=== PATIENT | female | born 1975 | race Caucasian/White ===

== ENCOUNTER 2017-10-05 17:14 | Emergency (ER) | payer MEDICAID, OTHER ==
[~2017-10-05] VITALS: Ht 175.3 cm; Wt 53.9 kg
[~2017-10-05 17:14] MED LIST: CLIN-80 PO; GUAI120015 PO; METH500T PO; PSEU-259 PO
[2017-10-05 17:17] VITALS: BP 109/70
[2017-10-05] MEDS ORDERED: DOXY100C2 PO (18:27)
== END 2017-10-05 18:42 | disposition home or self-care (01) ==
LOC: ER 17:14
DX: L03.317 Cellulitis of buttock (principal); L03.032 Cellulitis of left toe; E03.9 Hypothyroidism, unspecified; G89.29 Other chronic pain; F11.10 Opioid abuse, uncomplicated; Z98.890 Other specified postprocedural states; Z90.89 Acquired absence of other organs; Z88.0 Allergy status to penicillin
CPT/HCPCS: 99283

== ENCOUNTER 2018-04-15 19:55 | Emergency (ER) | payer MEDICAID ==
[~2018-04-15] VITALS: Ht 175.3 cm; Wt 61.9 kg
[~2018-04-15 19:55] MED LIST changes: -CLIN-80 PO; +CLIN300C85 PO
[2018-04-15] MEDS ORDERED: mag hydrox/Alum hydrox/simeth 30ml oral suspension PO ONE (21:15)
[2018-04-15] MEDS ORDERED: LIDOcaine Viscous 15ml cup PO ONE (21:15)
[2018-04-15] MEDS ORDERED: famotidine/PF 10 mg/ml inj IV ONE (21:15)
[2018-04-15] MEDS ORDERED: sucralfate 1 gm tablet PO ONE (21:15)
[2018-04-15 21:18] LABS: BASOPHILS % (AUTO) 0.5 % (0-1); EOSINOPHILS # (AUTO) 0.2 X10'3 (0-0.9); EOSINOPHILS % (AUTO) 2.2 % (0-6); HEMOGLOBIN 12.6 g/dl (12.0-16.0); LYMPHOCYTES # (AUTO) 3.4 X10'3 (1.1-4.8); LYMPHOCYTES % (AUTO) 38.8 % (21-51); MEAN CORPUSCULAR VOLUME 88.1 FL (78-98); MEAN PLATELET VOLUME 7.4 FL (7.4-10.4); MONOCYTES # (AUTO) 0.6 X10'3 (0-0.9); MONOCYTES % (AUTO) 6.8 % (2-12); NEUTROPHILS # (AUTO) 4.6 X10'3 (1.8-7.7); NEUTROPHILS % (AUTO) 51.7 % (42-75); PLATELET COUNT 344 X10'3 (140-440); RED CELL DISTRIBUTION WIDTH 14.4 % (11.5-14.5); WHITE BLOOD COUNT 8.9 X10'3 (4.5-11.0)
[2018-04-15 21:30] LABS: PARTIAL THROMBOPLASTIN TIME 29 SECONDS (22-32); PROTHROMBIN TIME 10.7 SECONDS (9.0-12.0)
[2018-04-15 21:33] LABS: ALANINE AMINOTRANSFERASE 26 U/L (12-78); ALBUMIN 3.6 G/DL (3.4-5.0); ALBUMIN/GLOBULIN RATIO 0.8 (1.1-1.5); ALKALINE PHOSPHATASE 108 IU/L (46-116); ANION GAP 9 (8-16); ASPARTATE AMINO TRANSFERASE 24 U/L (10-37); BILIRUBIN,TOTAL 0.6 MG/DL (0.1-1.0); BLOOD UREA NITROGEN 18 MG/DL (7-18); BUN/CREATININE RATIO 20.2 (6.6-38.0); CALCIUM 8.7 MG/DL (8.5-10.1); CHLORIDE 105 MMOL/L (99-107); CREATININE 0.89 MG/DL (0.40-0.90); POTASSIUM 3.7 MMOL/L (3.5-5.1); SODIUM 143 MMOL/L (135-145); TOTAL CARBON DIOXIDE 29.3 MMOL/L (24-32); TOTAL PROTEIN 7.9 G/DL (6.4-8.2); eGFR 70 ML/MIN
[2018-04-15 21:36] LABS: GLUCOSE 90 MG/DL (70-104)
[2018-04-15 21:58] LABS: CLARITY,URINE CLEAR (Clear); COLOR,URINE YELLOW (Yellow); GLUCOSE, URINE NEGATIVE (Neg); KETONES,URINE NEGATIVE (Neg); LEUKOCYTE ESTERASE ,URINE NEGATIVE (Neg); NITRITES, URINE NEGATIVE (Neg); OCCULT BLOOD,URINE NEGATIVE (Neg); PROTEIN,URINE NEGATIVE (Neg); UROBILINOGEN,URINE 0.2 E.U/dL (0.2-1.0)
[2018-04-15 22:00] LABS: URINE HCG NEGATIVE (NEG)
[2018-04-15 22:05] LABS: UA COLLECTION TYPE VOIDED
[2018-04-15 22:26] VITALS: BP 105/66
== END 2018-04-15 22:30 | disposition home or self-care (01) ==
LOC: ER 19:55
DX: R07.89 Other chest pain (principal); R11.0 Nausea; F15.10 Other stimulant abuse, uncomplicated; E03.9 Hypothyroidism, unspecified; G89.29 Other chronic pain; M54.9 Dorsalgia, unspecified; F11.90 Opioid use, unspecified, uncomplicated; Z88.0 Allergy status to penicillin
CPT/HCPCS: 36415; 71045; 80053; 81003; 81025; 84484; 85025; 85610; 85730; 93005; 96374; 99285; J3490; J7030

== ENCOUNTER 2019-04-22 22:21 | Emergency (ER) | payer MEDICAID, OTHER ==
[~2019-04-22] VITALS: Ht 175.3 cm; Wt 72.7 kg
[~2019-04-22 22:21] MED LIST changes: +CLIN-96 PO; -CLIN300C85 PO
[2019-04-23] MEDS ORDERED: DOXYCYCLINE 100MG CAPSULE PO STA (00:31)
[2019-04-23] MEDS ORDERED: ketorolac trometh inj. 60 MG/2 ML VIAL IM ONE (00:35)
[2019-04-23] MEDS ORDERED: DOXY100C2 PO (00:38)
[2019-04-23] MEDS ORDERED: IBUP-1985 PO (00:38)
[2019-04-23 00:52] VITALS: BP 116/78
== END 2019-04-23 01:04 | disposition home or self-care (01) ==
LOC: ER 22:21
DX: L03.115 Cellulitis of right lower limb (principal); E03.9 Hypothyroidism, unspecified; G89.29 Other chronic pain; F11.90 Opioid use, unspecified, uncomplicated; Z98.890 Other specified postprocedural states; Z88.0 Allergy status to penicillin; Z79.2 Long term (current) use of antibiotics; Z79.899 Other long term (current) drug therapy
CPT/HCPCS: 73610; 96372; 99284; J1885; 99283

== ENCOUNTER 2019-05-20 04:38 | Emergency (ER) | payer MEDICAID ==
[~2019-05-20] VITALS: Ht 175.3 cm; Wt 68.1 kg
[~2019-05-20 04:38] MED LIST changes: +CLIN-90 PO; -CLIN-96 PO; +IBUP-1985 PO
[2019-05-20] MEDS ORDERED: CLIN-90 PO (04:59)
[2019-05-20] MEDS ORDERED: clindamycin 150mg capsule PO ONE (05:00)
[2019-05-20 05:52] VITALS: BP 107/77
== END 2019-05-20 07:10 | disposition home or self-care (01) ==
LOC: ER 04:39
DX: L03.115 Cellulitis of right lower limb (principal); E03.9 Hypothyroidism, unspecified; G89.29 Other chronic pain; Z98.890 Other specified postprocedural states; Z88.0 Allergy status to penicillin; Z79.2 Long term (current) use of antibiotics; Z79.899 Other long term (current) drug therapy
CPT/HCPCS: 93971; 99284

== ENCOUNTER 2019-12-10 22:56 | Emergency (ER) | payer MEDICAID ==
[~2019-12-10] VITALS: Ht 175.3 cm; Wt 72.7 kg
[~2019-12-10 22:56] MED LIST changes: -CLIN-90 PO; +CLIN-97 PO
[2019-12-10 22:58] VITALS: BP 137/97
[2019-12-10] MEDS ORDERED: azithromycin 250mg tablet PO ONE (23:25)
[2019-12-10] MEDS ORDERED: CefTRIAXone 250MG IM Kit w/LIDOcaine IM ONE (23:25)
--- NOTE | 2019-12-10 23:31 | NUR ---
dirty catch and clean catch urine to the lab
[2019-12-10] MEDS ORDERED: DOXY100C76 PO (23:57)
[2019-12-10 23:59] LABS: CLARITY,URINE CLEAR (Clear); COLOR,URINE YELLOW (Yellow); GLUCOSE, URINE NEGATIVE (Neg); KETONES,URINE TRACE mg/dl (Neg); LEUKOCYTE ESTERASE ,URINE SMALL (Neg); NITRITES, URINE NEGATIVE (Neg); OCCULT BLOOD,URINE NEGATIVE (Neg); PROTEIN,URINE NEGATIVE (Neg)
[2019-12-11 00:01] LABS: URINE HCG NEGATIVE (NEG)
[2019-12-11 00:09] LABS: UA COLLECTION TYPE CLN CATCH MIDSTREAM
[2019-12-11 00:10] LABS: BACTERIA,URINE FEW /HPF (Neg); CAL OXALATE CRYSTALS 2+ /HPF (NEGATIVE); RBC,URINE NONE SEEN /HPF (0-2); SQUAMOUS EPITHELIAL CELL,UR FEW /LPF (FEW)
== END 2019-12-11 00:12 | disposition home or self-care (01) ==
LOC: ER 22:57
DX: N89.8 Other specified noninflammatory disorders of vagina (principal); Z11.3 Encounter for screening for infections with a predominantly sexual mode of transmission; G89.29 Other chronic pain; E03.9 Hypothyroidism, unspecified; Z98.890 Other specified postprocedural states; Z90.89 Acquired absence of other organs; Z88.0 Allergy status to penicillin; Z79.899 Other long term (current) drug therapy
CPT/HCPCS: 36415; 81001; 81025; 86592; 87088; 87491; 87591; 96372; 99283; J0696; 81003

== ENCOUNTER 2020-05-27 10:16 | Emergency (ER) | payer MEDICAID ==
[~2020-05-27] VITALS: Ht 175.3 cm; Wt 68.0 kg
[2020-05-27 10:25] VITALS: BP 129/80
[2020-05-27] MEDS ORDERED: ACYC-202 PO (12:14)
[2020-05-27] MEDS ORDERED: CLOT15CR10 TOP (12:14)
[2020-05-27 12:25] LABS: CLARITY,URINE CLEAR (Clear); COLOR,URINE YELLOW (Yellow); GLUCOSE, URINE NEGATIVE (Neg); KETONES,URINE NEGATIVE (Neg); LEUKOCYTE ESTERASE ,URINE NEGATIVE (Neg); NITRITES, URINE NEGATIVE (Neg); OCCULT BLOOD,URINE NEGATIVE (Neg); PH,URINE 7.5 (4.8-8.0); PROTEIN,URINE NEGATIVE (Neg)
[2020-05-27 12:26] LABS: UA COLLECTION TYPE CLN CATCH MIDSTREAM; URINE HCG NEGATIVE (NEG)
== END 2020-05-27 12:50 | disposition home or self-care (01) ==
LOC: ER 10:16
DX: B37.3 Candidiasis of vulva and vagina (principal); E07.89 Other specified disorders of thyroid; G89.29 Other chronic pain; M54.9 Dorsalgia, unspecified; Z88.0 Allergy status to penicillin; Z79.2 Long term (current) use of antibiotics; Z79.899 Other long term (current) drug therapy
CPT/HCPCS: 81003; 81025; 99284; Q0112

== ENCOUNTER 2020-06-30 00:12 | Emergency (ER) | payer MEDICAID ==
[~2020-06-30] VITALS: Ht 175.3 cm; Wt 68.2 kg
[~2020-06-30 00:12] MED LIST changes: +CLOT15CR10 TOP
[2020-06-30] MEDS ORDERED: ondansetron 4mg rapidly disintigrating tab PO ONE (00:20)
[2020-06-30] MEDS ORDERED: clindamycin 150mg capsule PO ONE (00:20)
[2020-06-30] MEDS ORDERED: CLIN150C8 PO (00:20)
== END 2020-06-30 00:31 | disposition home or self-care (01) ==
LOC: ER 00:13
DX: L02.416 Cutaneous abscess of left lower limb (principal); G89.29 Other chronic pain; F11.10 Opioid abuse, uncomplicated; E07.9 Disorder of thyroid, unspecified; Z88.0 Allergy status to penicillin; Z79.899 Other long term (current) drug therapy
CPT/HCPCS: 99283

== ENCOUNTER 2020-08-03 13:50 | Emergency (ER) | payer MEDICAID ==
[~2020-08-03] VITALS: Ht 175.3 cm; Wt 68.2 kg
[~2020-08-03 13:50] MED LIST changes: +CLIN150C8 PO
[2020-08-03] MEDS ORDERED: ALBU6.7H9 INH (14:14)
[2020-08-03] MEDS ORDERED: PRED10TA23 PO (14:14)
[2020-08-03] MEDS ORDERED: BENZ-38 PO (14:14)
== END 2020-08-03 14:33 | disposition home or self-care (01) ==
LOC: ER 13:51
DX: J06.9 Acute upper respiratory infection, unspecified (principal); R06.02 Shortness of breath; R50.9 Fever, unspecified; R53.83 Other fatigue; Z20.828 Contact with and (suspected) exposure to other viral communicable diseases; E03.9 Hypothyroidism, unspecified; G89.29 Other chronic pain; F11.90 Opioid use, unspecified, uncomplicated; Z98.890 Other specified postprocedural states; Z90.89 Acquired absence of other organs; Z88.0 Allergy status to penicillin; Z79.2 Long term (current) use of antibiotics; Z79.899 Other long term (current) drug therapy
CPT/HCPCS: 36415; 87635; 99283

== ENCOUNTER 2020-09-22 17:14 | Emergency (ER) | payer MEDICAID ==
[~2020-09-22] VITALS: Ht 175.3 cm; Wt 62.0 kg
[~2020-09-22 17:14] MED LIST changes: +ALBU6.7H9 INH
[2020-09-22] MEDS ORDERED: CLIN150C8 PO (18:47)
[2020-09-22] MEDS ORDERED: clindamycin 150mg capsule PO ONE (18:50)
[2020-09-22 19:02] VITALS: BP 109/67
== END 2020-09-22 19:13 | disposition home or self-care (01) ==
LOC: ER 17:15
DX: L02.415 Cutaneous abscess of right lower limb (principal); R21 Rash and other nonspecific skin eruption; E03.9 Hypothyroidism, unspecified; G89.29 Other chronic pain; F11.90 Opioid use, unspecified, uncomplicated; Z90.89 Acquired absence of other organs; Z98.890 Other specified postprocedural states; Z88.0 Allergy status to penicillin; Z79.2 Long term (current) use of antibiotics; Z79.899 Other long term (current) drug therapy
CPT/HCPCS: 99283

== ENCOUNTER 2020-10-21 02:52 | Emergency (ER) | payer MEDICAID ==
[~2020-10-21] VITALS: Ht 175.3 cm; Wt 56.2 kg
[2020-10-21 03:07] VITALS: BP 122/74
== END 2020-10-21 04:11 | disposition left against medical advice (07) ==
LOC: ER 02:52
DX: R22.42 Localized swelling, mass and lump, left lower limb (principal); Z53.21 Procedure and treatment not carried out due to patient leaving prior to being seen by health care provider

== ENCOUNTER 2021-03-02 20:40 | Emergency (ER) | payer MEDICAID ==
[~2021-03-02] VITALS: Ht 175.3 cm; Wt 60.0 kg
[2021-03-02] MEDS ORDERED: acetaminophen 325mg tablet PO ONE (20:55)
[2021-03-02 21:01] VITALS: BP 108/75
== END 2021-03-02 21:55 | disposition home or self-care (01) ==
LOC: ER 20:41
DX: U07.1 COVID-19 (principal); E06.9 Thyroiditis, unspecified; G89.29 Other chronic pain; M54.9 Dorsalgia, unspecified; Z88.0 Allergy status to penicillin; Z79.899 Other long term (current) drug therapy
CPT/HCPCS: 87635; 99283; C9803

== ENCOUNTER 2021-07-17 22:14 | Emergency (ER) | payer MEDICAID ==
[~2021-07-17] VITALS: Ht 175.3 cm; Wt 68.2 kg
--- NOTE | 2021-07-17 22:46 | NUR ---
pt rt toes, foot are swollen and red. pt calf is swollen and tender. consulted dr funk regarding lab work, poss tylenol admin and x-rays. awaiting orders.
--- NOTE | 2021-07-17 23:55 | NUR ---
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 pt states hx of iv drug use. md funk aware.
[2021-07-18] MEDS ORDERED: clindamycin 150mg capsule PO ONE (02:50)
[2021-07-18] MEDS ORDERED: CLIN300C63 PO (02:53)
--- NOTE | 2021-07-18 03:00 | NUR ---
peairs at bedside using ultrasound to start iv for lab draw and abx. first attempt was unsuccsessful. pt refused 2nd attempt by pt to leave ama.
[2021-07-18 03:03] VITALS: BP 110/78
== END 2021-07-18 03:04 | disposition left against medical advice (07) ==
LOC: ER 22:15
DX: L03.115 Cellulitis of right lower limb (principal); E03.9 Hypothyroidism, unspecified; G89.29 Other chronic pain; Z86.19 Personal history of other infectious and parasitic diseases; Z98.890 Other specified postprocedural states; Z90.89 Acquired absence of other organs; Z88.0 Allergy status to penicillin; Z79.2 Long term (current) use of antibiotics; Z79.899 Other long term (current) drug therapy
CPT/HCPCS: 73590; 73610; 73630; 93926; 93971; 99284; 99285

== ENCOUNTER 2021-08-30 04:46 | Inpatient (IN) | payer MEDICAID ==
[2021-08-30] VITALS (42 sets, daily range): BP systolic 80–138; BP diastolic 40–92
[~2021-08-30] VITALS: Ht 177.8 cm; Wt 66.2 kg
--- NOTE | 2021-08-30 04:48 | NUR ---
PT ARRIVED VIA EMS, INTUBATED WITH PULSES BACK HR 135 AND BP 112/66 SPO2 100% NARCAN GIVEN IN FIELD. PT PUPILS INITALLY FIXED FOR EMS AND NOW 2MM AND RESPONSIVE, WITH RIGHT PUPIL SLUGGISH AND PERFECTLY ROUND 0446 PT GIVEN AMP OF CALCIUM CARBONATE AND BICARB PT SEEMS TO BE POSTURING IN WHAT MAY BE DECORTICATE MANOR AND BITING ET TUBE, RESPONSIVE BLINK REFLEX WHEN PROMPTED. PT GIVEN 1L NS IN FIELD WELL 2 EPI, 3 SHOCKS AND 300MG AMIODARONE. INITIAL RYTHMS PER EMS WERE V-FIB, ASYSTOLE AND THEN PULSES RETURNED. SECOND L NS GIVEN IN ER AFTER ARRIVAL. CENTRAL LINE PLACED BY DR CLEMENTS, EKG DONE, TEMP ALTAMIRANO PLACED, OG PLACED, ET TUBE PLACEMENT VERIFIED BY X-RAY WITH DR CLEMENTS VERBAL ORDER PUT IN FOR 2MG MAGNESIUM, GIVEN
[2021-08-30 05:15] LABS: BASOPHILS # (AUTO) 0.1 X10'3 (0-0.2); BASOPHILS % (AUTO) 0.2 % (0-1); EOSINOPHILS # (AUTO) 0.3 X10'3 (0-0.9); EOSINOPHILS % (AUTO) 0.7 % (0-6); LYMPHOCYTES # (AUTO) 11.9 X10'3 (1.1-4.8); LYMPHOCYTES % (AUTO) 28.9 % (21-51); MEAN PLATELET VOLUME 8.6 FL (7.4-10.4); MONOCYTES # (AUTO) 2.2 X10'3 (0-0.9); MONOCYTES % (AUTO) 5.4 % (2-12); NEUTROPHILS # (AUTO) 26.5 X10'3 (1.8-7.7); NEUTROPHILS % (AUTO) 64.8 % (42-75); PLATELET COUNT 392 X10'3 (140-440)
[2021-08-30] MEDS ORDERED: FENTANYL CITRATE/D5W/PF 100 ML IV PRN (05:15)
[2021-08-30] MEDS ORDERED: propofol 10mg/ml 20ml vial IV PRN (05:15)
[2021-08-30] MEDS: propofol 1000mg/100ml bottle 100 ML IV SCH ×4 (05:22→23:46)
[2021-08-30 05:29] LABS: APTT 28 SECONDS (22-32)
[2021-08-30 05:32] LABS: ALANINE AMINOTRANSFERASE 22 U/L (12-78); ALBUMIN/GLOBULIN RATIO 0.5 (1.1-1.5); ALKALINE PHOSPHATASE 226 IU/L (46-116); ANION GAP 16 (8-16); ASPARTATE AMINO TRANSFERASE 44 U/L (10-37); BILIRUBIN,DIRECT 0.3 MG/DL (0-0.3); BILIRUBIN,TOTAL 0.3 MG/DL (0.1-1.0); BLOOD UREA NITROGEN 14 MG/DL (7-18); BUN/CREATININE RATIO 10.1 (6.6-38.0); CALCIUM 8.7 MG/DL (8.5-10.1); CHLORIDE 103 MMOL/L (99-107); CREATININE 1.39 MG/DL (0.40-0.90); GLUCOSE 278 MG/DL (70-104); LIPASE < 50 U/L (73-393); POTASSIUM 3.5 MMOL/L (3.5-5.1); SODIUM 137 MMOL/L (135-145); TOTAL CARBON DIOXIDE 18.4 MMOL/L (24-32); TOTAL PROTEIN 6.1 G/DL (6.4-8.2); eGFR 41 ML/MIN
[2021-08-30 05:40] LABS: HEMATOCRIT 28.9 % (35.0-45.0); HEMOGLOBIN 9.4 g/dl (12.0-16.0); MEAN CORPUSCULAR HEMOGLOBIN 26.8 PG (27.0-31.0); MEAN CORPUSCULAR HGB CONC 32.4 g/dL (33.0-36.5); MEAN CORPUSCULAR VOLUME 82.6 FL (78-98); RED CELL DISTRIBUTION WIDTH 14.8 % (11.5-14.5)
[2021-08-30] MEDS ORDERED: NOREPINEPHRINE BITARTRATE/D5W 250 ML IV PRN (05:50)
[2021-08-30 05:57] LABS: TOTAL CELLS COUNTED 100
[2021-08-30 05:58] LABS: ANISOCYTOSIS 1+; GIANT PLATELET FEW; LARGE PLATELETS FEW; PLATELET ESTIMATE NORMAL
[2021-08-30] MEDS: FENTANYL-0.9 % NACL/PF 100 ML IV PRN ×4 (06:01→21:11)
[2021-08-30] MEDS ORDERED: magnesium 2GM in 50ml NS 50 ML IV ONE (06:10)
--- NOTE | 2021-08-30 06:30 | NUR ---
FIRST CONTACT WITH PT. FOUND INTUBATED AND SEDATED, POST CARDIAC ARREST. PT IS SEDATED, EMAR. ALTAMIRANO, OG TUBE AND R FEMORAL CENTRAL LINE IN PLACE. BM NOTED, PT TURNED AND CLEANED, NEW LINEN PLACED. WILL CLOSELY MONITOR.
[2021-08-30] MEDS ORDERED: vancomycin/NS 1 GM ADD-VANTAGE 250 ML IV ONE (06:55)
[2021-08-30] MEDS ORDERED: potassium Cl 20 mEq SR tablet PO PRN ×2 (07:10)
[2021-08-30] MEDS ORDERED: magnesium 4gm in 100ml NS 100 ML IV PRN (07:10)
[2021-08-30] MEDS ORDERED: morphine 4 MG/ML inj SYRINge IV PRN (07:10)
[2021-08-30] MEDS ORDERED: morphine 2 MG/ML inj. syringe IV PRN (07:10)
[2021-08-30] MEDS ORDERED: LIDOcaine 2% 10ml TOPICAL JELLY (Urojet) TP ONE (07:10)
[2021-08-30] MEDS ORDERED: magnesium hydroxide 30ml (MOM) UD suspension PO PRN (07:10)
[2021-08-30] MEDS ORDERED: ipratropium/albuterol 3ml nebule NEB PRN (07:10)
[2021-08-30] MEDS ORDERED: potassium Cl 20mEq/100mL bag 100 ML IV PRN (07:10)
[2021-08-30] MEDS ORDERED: magnesium 2GM in 50ml NS 50 ML IV PRN (07:10)
[2021-08-30] MEDS ORDERED: acetaminophen 325mg tablet PO PRN ×2 (07:10)
[2021-08-30] MEDS ORDERED: ondansetron/PF 4mg/2ml inj IV PRN (07:10)
[2021-08-30] MEDS ORDERED: VANCOMYCIN 1GM/200ML IVPB 200 ML IV ONE (07:20)
[2021-08-30] MEDS ORDERED: CISatracurium **Bolus** 2 mg/ml inj IV PRN (07:20)
[2021-08-30] MEDS ORDERED: CISatracurium besylate inj. 100 MG in normal saline 100ml IV soln 90 ML IV PRN ×2 (07:20→07:36)
[2021-08-30] MEDS ORDERED: DOPamine 400mg/D5W 250ml 250 ML IV ONE (07:25)
[2021-08-30] MEDS ORDERED: iohexol 350MG/ML 100ml bottle IV ONE (07:32)
--- NOTE | 2021-08-30 07:55 | NUR ---
DR. SAINZ AT BEDSIDE.
--- NOTE | 2021-08-30 07:58 | NUR ---
MOM CALLED SAMANTHA SIDDIQUI [phone]
[2021-08-30] MEDS ORDERED: LIDOcaine 2% (20 mg/ml) 5ml cardiac syringe ONE (08:00)
[2021-08-30] MEDS ORDERED: pantoprazole 40MG/D5 100ML BAG 100 ML IV SCH (08:00)
[2021-08-30] MEDS: docusate sod 100mg capsule PO SCH ×2 (08:00→20:00)
[2021-08-30] MEDS ORDERED: epiNEPHrine 0.1mg/ml 10ml syringe ONE (08:00)
[2021-08-30] MEDS: K and/or MAG REPLACEMENT MC SCH (08:00)
[2021-08-30] MEDS ORDERED: NOREPINEPHRINE BITARTRATE/D5W 8 MG/250 ML PLAST..BAG IV ONE (08:00)
--- NOTE | 2021-08-30 08:00 | NUR ---
PT TO/FROM CT WITHOUT INCIDENT.
[2021-08-30 08:03] LABS: BETA HCG,QUANTITATIVE < 1.0 mIU/ml; LDL CHOLESTEROL 55 MG/DL (50-100)
[2021-08-30 08:05] LABS: CLARITY,URINE CLOUDY (Clear); COLOR,URINE YELLOW (Yellow); GLUCOSE, URINE 250 mg/dl (Neg); KETONES,URINE NEGATIVE (Neg); LEUKOCYTE ESTERASE ,URINE NEGATIVE (Neg); NITRITES, URINE NEGATIVE (Neg); OCCULT BLOOD,URINE MODERATE (Neg); PH,URINE 7.5 (4.8-8.0); PROTEIN,URINE >=300 mg/dl (Neg); UROBILINOGEN,URINE 0.2 E.U/dL (0.2-1.0)
[2021-08-30 08:09] LABS: UA COLLECTION TYPE FOLEY CATH
[2021-08-30 08:10] LABS: URINE HCG NEGATIVE (NEG)
[2021-08-30 08:11] LABS: SQUAMOUS EPITHELIAL CELL,UR MODERATE /LPF (FEW)
[2021-08-30 08:12] LABS: BACTERIA,URINE 3+ /HPF (Neg)
[2021-08-30 08:14] LABS: RBC,URINE TNTC /HPF (0-2)
[2021-08-30 08:15] LABS: URINE AMPHETAMINE SCREEN POSITIVE (Neg); URINE BARBITUATE SCREEN NEGATIVE (Neg); URINE BENZODIAZEPINES SCREEN NEGATIVE (Neg); URINE CANNABINOID SCREEN NEGATIVE (Neg); URINE COCAINE SCREEN NEGATIVE (Neg); URINE METHADONE SCREEN NEGATIVE (Neg); URINE OPIATE SCREEN NEGATIVE (Neg); URINE PHENCYCLIDINE SCREEN NEGATIVE (Neg)
[2021-08-30 08:16] LABS: TRANSITIONAL EPI CELLS,URINE MANY /HPF
[2021-08-30 08:19] LABS: COARSE GRANULAR CAST 0-3 /LPF (NEGATIVE)
[2021-08-30 08:20] LABS: AMORPHOUS PHOSPHATES 1+; WBC CLUMPS,URINE FEW /HPF (NEGATIVE)
[2021-08-30] MEDS: normal saline 1000ml 1,000 ML IV SCH ×2 (08:27→14:43)
[2021-08-30] MEDS: heparin, porcine 5000 units/ml vial SQ SCH ×2 (08:27→20:19)
[2021-08-30] MEDS: pantoprazole 40MG/NS 100ML BAG 100 ML IV SCH (08:27)
[2021-08-30] MEDS ORDERED: vancomycin/NS 500MG ADD-VANT 100 ML IV ONE (09:00)
[2021-08-30] MEDS ORDERED: calcium chloride 100 MG/1 ML inj IV ONE (09:00)
[2021-08-30] MEDS ORDERED: atropine 0.1mg/ml 10ml syringe ONE (09:00)
[2021-08-30] MEDS ORDERED: sodium bicarbonate (8.4%) 1 mEq/ml syringe ONE (09:00)
[2021-08-30] MEDS ORDERED: NO HOME MEDS (09:27)
[2021-08-30] MEDS: aztreonam inj. 1,000 MG in normal saline 100ml IV soln 100 ML IV SCH ×2 (09:59→16:18)
[2021-08-30] MEDS: mineral oil/petrolatum ophthal oint EACHEYE SCH ×4 (10:00→20:14)
[2021-08-30 11:33] LABS: ABG BASE EXCESS -3.8 mmol/L (-2.0-2.0); ABG OXYGEN SATURATION 96.4 % (94-97); ABG PCO2 (T) 30.9 mmHg (32.0-45.0); ABG PO2 (T) 80.8 mmHg (75.0-100.0); ALLEN'S TEST POSITIVE; FCOHb 0.3 % (0.0-3.9); FMetHb 0.3 % (0.0-1.5); FO2Hb 95.8 % (94-97); PATIENT TEMPERATURE 36.3; PEEP 5 cm H2O; RESPIRATORY RATE 18 b/min; TIDAL VOLUME 579 mL; TOTAL HEMOGLOBIN 11.1 G/dl (12.0-16.0)
--- NOTE | 2021-08-30 12:39 | NUR ---
telephone report to berenice bryant. all questions answered. pt to floor with rt and rn.
[2021-08-30] MEDS ORDERED: DOPamine 400mg/D5W 250ml 250 ML IV SCH (13:15)
[2021-08-30] MEDS: DOPamine 400mg/D5W 250ml 250 ML IV SCH ×3 (14:05→20:39)
[2021-08-30 14:43] LABS: ALBUMIN 2.2 G/DL (3.4-5.0); ANION GAP 10 (8-16); BLOOD UREA NITROGEN 21 MG/DL (7-18); BUN/CREATININE RATIO 13.3 (6.6-38.0); CALCIUM 7.9 MG/DL (8.5-10.1); CHLORIDE 104 MMOL/L (99-107); CREATININE 1.58 MG/DL (0.40-0.90); MAGNESIUM 2.8 MG/DL (1.5-2.4); POTASSIUM 3.8 MMOL/L (3.5-5.1); SODIUM 136 MMOL/L (135-145); TOTAL CARBON DIOXIDE 21.7 MMOL/L (24-32); eGFR 36 ML/MIN
[2021-08-30 14:44] LABS: CREATINE KINASE 1656 U/L (26-192); GLUCOSE 227 MG/DL (70-104)
[2021-08-30 15:27] LABS: CKMB RELATIVE INDEX 17.1 RATIO (0-2.5)
[2021-08-30] MEDS ORDERED: NORepinephrine inj. 8 MG in dextrose 5%-water 242 ML IV SCH (16:00)
[2021-08-30] MEDS: midazolam 100mg in NS 100ml 100 ML IV SCH (16:35)
[2021-08-30] MEDS ORDERED: pneumococcal 23-VAL P-sac vacc 25 mcg/0.5ml vial IMVAC ONE (17:50)
[2021-08-30] MEDS: CefTRIAXone 2gm/D5W 50ml BAG 50 ML IV SCH (19:35)
[2021-08-30 19:39] LABS: ALBUMIN 2.2 G/DL (3.4-5.0); ANION GAP 10 (8-16); BLOOD UREA NITROGEN 24 MG/DL (7-18); BUN/CREATININE RATIO 13.3 (6.6-38.0); CALCIUM 7.9 MG/DL (8.5-10.1); CHLORIDE 103 MMOL/L (99-107); MAGNESIUM 2.9 MG/DL (1.5-2.4); POTASSIUM 3.9 MMOL/L (3.5-5.1); SODIUM 136 MMOL/L (135-145); TOTAL CARBON DIOXIDE 22.8 MMOL/L (24-32); eGFR 31 ML/MIN
[2021-08-30 19:45] LABS: ABG BASE EXCESS -6.1 mmol/L (-2.0-2.0); ABG HCO3 20.4 mmol/L (22.0-26.0); ABG PCO2 (T) 37.8 mmHg (32.0-45.0); ABG PO2 (T) 48.6 mmHg (75.0-100.0); ALLEN'S TEST POSITIVE; FCOHb 0.3 % (0.0-3.9); FMetHb 0.2 % (0.0-1.5); FO2Hb 88.6 % (94-97); PATIENT TEMPERATURE 33.4; PEEP 5 cm H2O; RESPIRATORY RATE 18 b/min; TIDAL VOLUME 375 mL; TOTAL HEMOGLOBIN 11.2 G/dl (12.0-16.0)
--- NOTE | 2021-08-30 19:48 | NUR ---
Reported EKG change of 3rd degree HB to accelerated JR to Dr. Benito, no new orders.
[2021-08-30 20:57] LABS: GLUCOSE 535 MG/DL (70-104)
--- NOTE | 2021-08-30 21:19 | NUR ---
rechecking CMP glucose, it came back at 500+, I had done an accucheck around the same time that was around 120. I sent a stat glucose to lab and rechecked her with the sample and it was 140s
[2021-08-30] MEDS: NORepinephrine 8mg/ 250ml NS 250 ML IV PRN (22:45)
[2021-08-31] VITALS (33 sets, daily range): BP systolic 8–103; BP diastolic 51–63
[2021-08-31] MEDS: mineral oil/petrolatum ophthal oint EACHEYE SCH ×7 (00:14→23:37)
[2021-08-31 00:15] LABS: CKMB RELATIVE INDEX 23.7 RATIO (0-2.5)
[2021-08-31] MEDS: FENTANYL-0.9 % NACL/PF 100 ML IV PRN ×5 (00:45→20:44)
[2021-08-31 01:47] LABS: BASOPHILS # (AUTO) 0.1 X10'3 (0-0.2); BASOPHILS % (AUTO) 0.2 % (0-1); EOSINOPHILS % (AUTO) 0.1 % (0-6); HEMATOCRIT 30.5 % (35.0-45.0); HEMOGLOBIN 9.8 g/dl (12.0-16.0); LYMPHOCYTES # (AUTO) 7.5 X10'3 (1.1-4.8); LYMPHOCYTES % (AUTO) 19.1 % (21-51); MEAN CORPUSCULAR HEMOGLOBIN 26.9 PG (27.0-31.0); MEAN CORPUSCULAR HGB CONC 32.2 g/dL (33.0-36.5); MEAN CORPUSCULAR VOLUME 83.4 FL (78-98); MEAN PLATELET VOLUME 8.1 FL (7.4-10.4); MONOCYTES # (AUTO) 2.1 X10'3 (0-0.9); MONOCYTES % (AUTO) 5.4 % (2-12); NEUTROPHILS # (AUTO) 29.4 X10'3 (1.8-7.7); NEUTROPHILS % (AUTO) 75.2 % (42-75); PLATELET COUNT 489 X10'3 (140-440); RED BLOOD COUNT 3.66 X10'6 (4.20-5.60); RED CELL DISTRIBUTION WIDTH 15.2 % (11.5-14.5)
[2021-08-31 01:56] LABS: WHITE BLOOD COUNT 39.1 X10'3 (4.5-11.0)
[2021-08-31 02:06] LABS: ALANINE AMINOTRANSFERASE 48 U/L (12-78); ALBUMIN 1.9 G/DL (3.4-5.0); ALBUMIN/GLOBULIN RATIO 0.4 (1.1-1.5); ALKALINE PHOSPHATASE 287 IU/L (46-116); ANION GAP 8 (8-16); ASPARTATE AMINO TRANSFERASE 117 U/L (10-37); BILIRUBIN,TOTAL 0.7 MG/DL (0.1-1.0); BLOOD UREA NITROGEN 26 MG/DL (7-18); BUN/CREATININE RATIO 13.7 (6.6-38.0); CALCIUM 7.5 MG/DL (8.5-10.1); CHLORIDE 103 MMOL/L (99-107); MAGNESIUM 2.7 MG/DL (1.5-2.4); PHOSPHORUS 5.2 MG/DL (2.3-4.5); SODIUM 134 MMOL/L (135-145); TOTAL PROTEIN 6.5 G/DL (6.4-8.2); eGFR 29 ML/MIN
[2021-08-31 02:11] LABS: GLUCOSE 126 MG/DL (70-104)
[2021-08-31 02:55] LABS: ABG BASE EXCESS -5.9 mmol/L (-2.0-2.0); ABG OXYGEN SATURATION 96.2 % (94-97); ABG PCO2 (T) 35.2 mmHg (32.0-45.0); ABG PO2 (T) 69.8 mmHg (75.0-100.0); ALLEN'S TEST NEGATIVE; FCOHb 0.3 % (0.0-3.9); FMetHb 0.3 % (0.0-1.5); FO2Hb 95.6 % (94-97); PATIENT TEMPERATURE 33.6; PEEP 5 cm H2O; RESPIRATORY RATE 18 b/min; TIDAL VOLUME 375 mL; TOTAL HEMOGLOBIN 11.5 G/dl (12.0-16.0)
[2021-08-31 04:13] LABS: TOTAL CELLS COUNTED 100
[2021-08-31 04:14] LABS: PLATELET ESTIMATE INCREASED
[2021-08-31 04:15] LABS: ANISOCYTOSIS FEW; BURR CELLS FEW
[2021-08-31 04:16] LABS: LARGE PLATELETS FEW; TEAR DROP CELLS FEW
[2021-08-31] MEDS: normal saline 1000ml 1,000 ML IV SCH (04:24)
[2021-08-31] MEDS: midazolam 100mg in NS 100ml 100 ML IV SCH ×2 (05:16→23:50)
[2021-08-31] MEDS: propofol 1000mg/100ml bottle 100 ML IV SCH ×2 (05:17→10:47)
--- NOTE | 2021-08-31 06:30 | NUR ---
Patient in room ICU 2038. I have received report from annette and had the opportunity to ask questions and assume patient care.
[2021-08-31] MEDS ORDERED: docusate sodium 100mg/10ml UD cup PO SCH (08:00)
[2021-08-31] MEDS ORDERED: metroNIDAZOLE-Flagyl 500mg/NS 100 ML IV SCH (08:00)
[2021-08-31] MEDS: K and/or MAG REPLACEMENT MC SCH (08:00)
[2021-08-31] MEDS ORDERED: VANCOMYCIN 1GM/200ML IVPB 200 ML IV SCH (08:00)
[2021-08-31] MEDS: DOPamine 400mg/D5W 250ml 250 ML IV SCH ×2 (08:04→18:30)
[2021-08-31] MEDS: heparin, porcine 5000 units/ml vial SQ SCH ×2 (08:05→20:05)
[2021-08-31] MEDS: pantoprazole 40MG/NS 100ML BAG 100 ML IV SCH (08:05)
[2021-08-31] MEDS: CefTRIAXone 2gm/D5W 50ml BAG 50 ML IV SCH (08:06)
[2021-08-31 08:39] LABS: ABG BASE EXCESS -6.9 mmol/L (-2.0-2.0); ABG HCO3 19.1 mmol/L (22.0-26.0); ABG PCO2 (T) 34.2 mmHg (32.0-45.0); ABG PO2 (T) 67.7 mmHg (75.0-100.0); ALLEN'S TEST POSITIVE; FCOHb 0.3 % (0.0-3.9); FMetHb 0.1 % (0.0-1.5); FO2Hb 95.6 % (94-97); PATIENT TEMPERATURE 33.3; RESPIRATORY RATE 18 b/min; TIDAL VOLUME 375 mL; TOTAL HEMOGLOBIN 11.6 G/dl (12.0-16.0)
[2021-08-31] MEDS ORDERED: pneumococcal 23-VAL P-sac vacc 25 mcg/0.5ml vial IMVAC ONE (09:00)
[2021-08-31] MEDS: NORepinephrine 8mg/ 250ml NS 250 ML IV PRN (10:48)
--- NOTE | 2021-08-31 11:48 | NUR ---
update to dr jeffrey. call to dr ferrera re positive blood culture and review of abx. spoke with mom over the phone. case coordinator to call her to schedule family conference. pt continues cooling. no response to pain, no cough, no gag, no corneal reflex. pt on fent, diprivan and versed gtts. hr 80"s on dopamine- junctional rhythm. on levo to keep map above 65
[2021-08-31 13:10] LABS: TRIGLYCERIDES 57 MG/DL (20-135)
--- NOTE | 2021-08-31 13:52 | NUR ---
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 Pt on TTM w/ rewarming to begin this afternoon and TF to start once rewarmed per climatology professor. OG in place w/ MAP 60-70 this AM per RN at rounds. TF recs below given pt needs. Noted pt started on Propofol fluctuating from 1.95 to 15.6ml/hr now currently 1.95ml/hr per EMR providing 51 kcals/day. Pt Luis Alfredo 12 w/ skin intact per EMR. Pt reports 2-13 pounds wt loss though unsure of accuracy given admitting DX and intubation; does have BLE 3+ pitting edema though has no visible signs of muscle/fat wasting during RD rounds this AM. Lacks minimum malnutrition criteria at this time. Will monitor for TF tolerance and further nutrition support needs on vent. Rec: 1. Continuous TF per MD using Vital AF at 65ml/hr goal; to provide 1650ml volume/day, 1872 kcals, 1264ml water, and 117g protein. 2. additional water flush per climatology professor; serum Na 134 mmol/L this AM 3. PALB Q /; daily wts 4. monitor for TF tolerance 5. routine bowel care Addendum: 08/31/21 at [address] Amended: Links added.
[2021-08-31] MEDS: dextrose 5%-normal saline 1,000 ML IV SCH (14:30)
--- NOTE | 2021-08-31 14:30 | NUR ---
dr ferrera in- updated. blood sugar- 68- dr jeffrey notified- iv changed to d5ns at 75.
[2021-08-31 15:24] LABS: ABG BASE EXCESS -8.9 mmol/L (-2.0-2.0); ABG HCO3 16.9 mmol/L (22.0-26.0); ABG OXYGEN SATURATION 96.6 % (94-97); ABG PCO2 (T) 30.3 mmHg (32.0-45.0); ABG PO2 (T) 67.4 mmHg (75.0-100.0); ALLEN'S TEST POSITIVE; FCOHb 0.3 % (0.0-3.9); FMetHb 0.1 % (0.0-1.5); FO2Hb 96.2 % (94-97); RESPIRATORY RATE 18 b/min; TIDAL VOLUME 375 mL; TOTAL HEMOGLOBIN 12.1 G/dl (12.0-16.0)
[2021-08-31 15:30] LABS: PREALBUMIN 12.8 MG/DL (19-36)
--- NOTE | 2021-08-31 17:00 | NUR ---
rewarming started, no neuro changes except pt breathing over vent at 19 to 20
[2021-08-31 20:00] LABS: ABG BASE EXCESS -10.1 mmol/L (-2.0-2.0); ABG HCO3 14.9 mmol/L (22.0-26.0); ABG OXYGEN SATURATION 94.2 % (94-97); ABG PO2 (T) 57.9 mmHg (75.0-100.0); ALLEN'S TEST POSITIVE; FCOHb 0.3 % (0.0-3.9); FMetHb 0.3 % (0.0-1.5); FO2Hb 93.6 % (94-97); PATIENT TEMPERATURE 33.5; PEEP 5 cm H2O; RESPIRATORY RATE 18 b/min; TIDAL VOLUME 375 mL; TOTAL HEMOGLOBIN 12.3 G/dl (12.0-16.0)
[2021-08-31] MEDS: docusate sodium 100mg/10ml UD cup OGT SCH (20:05)
[2021-08-31] MEDS ORDERED: ringers solution, lacted 1,000 ML IV ONE (23:30)
--- NOTE | 2021-08-31 23:30 | NUR ---
Call in to Dr. Caraballo to report dwindling urine output. Orders noted. Fluid challenge with 1L LR given as ordered.
[2021-09-01] VITALS (19 sets, daily range): BP systolic 0–117; BP diastolic 0–58
[2021-09-01 01:24] LABS: ABG BASE EXCESS -8.9 mmol/L (-2.0-2.0); ABG HCO3 16.1 mmol/L (22.0-26.0); ABG OXYGEN SATURATION 94.1 % (94-97); ABG PCO2 (T) 28.5 mmHg (32.0-45.0); ABG PO2 (T) 63.5 mmHg (75.0-100.0); ALLEN'S TEST POSITIVE; FCOHb 0.3 % (0.0-3.9); FMetHb 0.2 % (0.0-1.5); FO2Hb 93.6 % (94-97); PATIENT TEMPERATURE 34.6; PEEP 5 cm H2O; RESPIRATORY RATE 18 b/min; TIDAL VOLUME 375 mL; TOTAL HEMOGLOBIN 11.9 G/dl (12.0-16.0)
[2021-09-01] MEDS: NORepinephrine 8mg/ 250ml NS 250 ML IV PRN ×2 (01:30→06:47)
[2021-09-01] MEDS: FENTANYL-0.9 % NACL/PF 100 ML IV PRN ×3 (01:31→11:09)
[2021-09-01 03:23] LABS: BASOPHILS # (AUTO) 0.1 X10'3 (0-0.2); BASOPHILS % (AUTO) 0.2 % (0-1); EOSINOPHILS % (AUTO) 0 % (0-6); HEMOGLOBIN 10.4 g/dl (12.0-16.0); LYMPHOCYTES # (AUTO) 2.8 X10'3 (1.1-4.8); LYMPHOCYTES % (AUTO) 7.6 % (21-51); MEAN CORPUSCULAR HEMOGLOBIN 26.4 PG (27.0-31.0); MEAN CORPUSCULAR HGB CONC 31.6 g/dL (33.0-36.5); MEAN CORPUSCULAR VOLUME 83.7 FL (78-98); MEAN PLATELET VOLUME 8.7 FL (7.4-10.4); MONOCYTES # (AUTO) 1.1 X10'3 (0-0.9); NEUTROPHILS # (AUTO) 32.8 X10'3 (1.8-7.7); NEUTROPHILS % (AUTO) 89.2 % (42-75); PLATELET COUNT 596 X10'3 (140-440); RED BLOOD COUNT 3.94 X10'6 (4.20-5.60); RED CELL DISTRIBUTION WIDTH 15.9 % (11.5-14.5)
[2021-09-01 03:30] LABS: WHITE BLOOD COUNT 36.8 X10'3 (4.5-11.0)
[2021-09-01 03:39] LABS: ALANINE AMINOTRANSFERASE 42 U/L (12-78); ALBUMIN 1.7 G/DL (3.4-5.0); ALBUMIN/GLOBULIN RATIO 0.5 (1.1-1.5); ALKALINE PHOSPHATASE 255 IU/L (46-116); ANION GAP 15 (8-16); ASPARTATE AMINO TRANSFERASE 91 U/L (10-37); BILIRUBIN,TOTAL 0.4 MG/DL (0.1-1.0); BLOOD UREA NITROGEN 29 MG/DL (7-18); CALCIUM 7.8 MG/DL (8.5-10.1); CHLORIDE 104 MMOL/L (99-107); CREATININE 2.42 MG/DL (0.40-0.90); MAGNESIUM 2.4 MG/DL (1.5-2.4); PHOSPHORUS 6.6 MG/DL (2.3-4.5); POTASSIUM 4.8 MMOL/L (3.5-5.1); SODIUM 137 MMOL/L (135-145); TOTAL CARBON DIOXIDE 17.7 MMOL/L (24-32); TOTAL PROTEIN 5.3 G/DL (6.4-8.2); eGFR 22 ML/MIN
[2021-09-01 03:44] LABS: GLUCOSE 103 MG/DL (70-104)
[2021-09-01] MEDS: mineral oil/petrolatum ophthal oint EACHEYE SCH ×3 (04:00→11:14)
[2021-09-01] MEDS: dextrose 5%-normal saline 1,000 ML IV SCH (04:46)
[2021-09-01] MEDS ORDERED: morphine 2 MG/ML inj. syringe IV STA (04:58)
[2021-09-01] MEDS: CALCIUM GLUC 1gm/50ml NACL,iso 50 ML IV SCH ×2 (05:16→06:23)
[2021-09-01] MEDS: DOPamine 400mg/D5W 250ml 250 ML IV SCH (06:01)
[2021-09-01] MEDS: propofol 1000mg/100ml bottle 100 ML IV SCH ×2 (06:10→11:15)
--- NOTE | 2021-09-01 06:30 | NUR ---
Patient in room ICU 2038. I have received report from yoni and had the opportunity to ask questions and assume patient care.
[2021-09-01] MEDS: docusate sodium 100mg/10ml UD cup OGT SCH (07:59)
[2021-09-01] MEDS: heparin, porcine 5000 units/ml vial SQ SCH (08:00)
[2021-09-01] MEDS: K and/or MAG REPLACEMENT MC SCH (08:00)
[2021-09-01] MEDS: CefTRIAXone 2gm/D5W 50ml BAG 50 ML IV SCH (08:01)
[2021-09-01] MEDS: pantoprazole 40MG/NS 100ML BAG 100 ML IV SCH (08:01)
[2021-09-01] MEDS ORDERED: furosemide 40mg/4ml inj IV ONE (09:40)
[2021-09-01] MEDS ORDERED: hydrocortisone sod succ/PF 100mg/2ml inj. IV SCH (11:00)
--- NOTE | 2021-09-01 11:35 | NUR ---
PT'S RR TO 40'S- ARRIVED TO ASSESS PT- HR FROM 100'S TO 49- SB TO 2ND DEGREE- TO ASYSTOLE- NO PULSE- CODE BLUE CALLED. CPR- SEVERAL ROUNDS OF EPI, ATROPINE, BICARB. DOPAMININE AND LEVO TO MAX. EPICAL AND DOBUTAMINE HUNG, ALONG WITH NS BOLUS. HR FROM ASYSTOLE TO PEA TO ST WITH BRIEF PULSE T0 ASYSTOLE AGAIN. FAMILY CALLED X 2- ON THEIR WAY.
--- NOTE | 2021-09-01 11:40 | NUR ---
F/u 09/01: Pt Propofol at 19.5ml/hr providing additional 515 kcals/day. TF started w/ Vital AF at 50ml/hr this AM per RN. RD notified MD of updated EN recs given Propofol rate; updated recs below. Rec: 1. While on Propofol at 19.5ml/hr; continuous TF per MD using Vital High Protein at 60ml/hr goal; to provide 1440ml volume/day, 1440 kcals, 1210ml water, and 126g protein. 2. IF off propofol; continuous TF per MD using Vital AF at 65ml/hr goal; to provide 1650ml volume/day, 1872 kcals, 1264ml water, and 117g protein. 3. additional water flush per wellness spa manager; serum Na 134 mmol/L this AM 4. PALB Q /; daily wts 5. monitor for TF tolerance 6. routine bowel care Addendum: 09/01/21 at [address] Amended: Links added.
[2021-09-01] MEDS ORDERED: DOBUTamine-DoBUTrex 500mg/D5W 250 ML IV ONE (11:59)
[2021-09-01] MEDS ORDERED: DOBUTamine 2000 MCG/250ML BAG IV SCH (12:05)
[2021-09-01] MEDS ORDERED: EPIneph 5MG & 1000mg Calcium/250ML bag IV PRN ×3 (12:05)
[2021-09-01] MEDS ORDERED: CISatracurium besylate inj. 100 MG in normal saline 100ml IV soln 90 ML IV PRN (12:45)
[2021-09-01] MEDS ORDERED: NORepinephrine 32 MG in Normal Saline 250ml IV soln IV SCH (12:55)
--- NOTE | 2021-09-01 13:00 | NUR ---
PT STABLE ON MAX PRESSOR, INOTROPE, SATS 80 TO 93 ON 100% AND PRRP 12. MOM AND DAUGHTER HERE- DR SAINZ SPOKE AT LENGTH TO THEM. THEY TALKED AT BEDSIDE. DECIDED TO DO COMFORT CARE. PT'S DAUGHTER CALLED HER DAD. WHEN MOM ASKED ABOUT IF SHE WANTED NURSING TO CONTACT BOYFRIEND- SHE STATES THAT SHE WILL CONTACT THIS PM. DR SAINZ HERE- PT MADE COMFORT CARE AT 1330 AND EXTUBATED AT 1335
--- NOTE | 2021-09-01 13:48 | NUR ---
PT AT 1348. DR SAINZ NOTIFIED.
--- NOTE | 2021-09-01 13:48 | NUR ---
RN IS TO DOCUMENT YES TO ALL APPLICABLE AREAS Pronouncement of :1347 1. Time Physician Notified:[id number] 2. Date of :1347 3. Time of : 1347 4. DNR/Withdraw life support documented:YES 5. Monitor strip has been placed on chart:YES 6. Assessment process is of one-minute duration and includes following criteria: a) Patient is unresponsive to all stimuli: Y b) Pupils fixed and non-reactive:Y c) Auscultation of precordium reveals absence of heart tones:Y d) Auscultation of lungs reveals absence of breath sounds:Y e) Absence of blood pressure / all vital signs:Y f) QRS complexes are not present on monitor / EKG strip:Y g) Pacer spikes without capture:N/A 4. Comments:
[2021-09-01] MEDS ORDERED: vancomycin inj. 750 MG in normal saline 250ml IV soln 250 ML IV SCH (14:00)
[2021-09-01] MEDS ORDERED: calcium acetate 667mg (PhosLO) capsule PO SCH (16:00)
[2021-09-03] MEDS ORDERED: FLU VACC QS2021-22(6MOS UP)/PF 60 MCG/0.5 ML SYRINGE IM ONE (09:00)
[2021-09-03] MEDS ORDERED: pneumococcal 23-VAL P-sac vacc 25 mcg/0.5ml vial IMVAC ONE (11:10)
[2021-09-03] MEDS ORDERED: VANCOMYCIN LEVEL IV ONE (13:30)
== END 2021-09-01 13:48 | DRG 720 ==
LOC: ER 04:47 → ED HOLD 07:16 → ICU 2S 12:45
PROVIDERS: ADMIT Internal Medicine Critical Care Medicine; ATTEND Internal Medicine Critical Care Medicine
PROC: 5A1945Z Respiratory Ventilation, 24-96 Consecutive Hours (ICD-10-PCS; principal; 2021-08-30)
PROC: 0BH17EZ Insertion of Endotracheal Airway into Trachea, Via Natural or Artificial Opening (ICD-10-PCS; 2021-08-30)
PROC: 06HY33Z Insertion of Infusion Device into Lower Vein, Percutaneous Approach (ICD-10-PCS; 2021-08-30)
PROC: B4201ZZ Computerized Tomography (CT Scan) of Abdominal Aorta using Low Osmolar Contrast (ICD-10-PCS; 2021-08-30)
PROC: B4241ZZ Computerized Tomography (CT Scan) of Superior Mesenteric Artery using Low Osmolar Contrast (ICD-10-PCS; 2021-08-30)
PROC: B4281ZZ Computerized Tomography (CT Scan) of Bilateral Renal Arteries using Low Osmolar Contrast (ICD-10-PCS; 2021-08-30)
PROC: B42C1ZZ Computerized Tomography (CT Scan) of Pelvic Arteries using Low Osmolar Contrast (ICD-10-PCS; 2021-08-30)
PROC: B42H1ZZ Computerized Tomography (CT Scan) of Bilateral Lower Extremity Arteries using Low Osmolar Contrast (ICD-10-PCS; 2021-08-30)
PROC: B4211ZZ Computerized Tomography (CT Scan) of Celiac Artery using Low Osmolar Contrast (ICD-10-PCS; 2021-08-30)
PROC: B32T1ZZ Computerized Tomography (CT Scan) of Left Pulmonary Artery using Low Osmolar Contrast (ICD-10-PCS; 2021-08-30)
PROC: B3201ZZ Computerized Tomography (CT Scan) of Thoracic Aorta using Low Osmolar Contrast (ICD-10-PCS; 2021-08-30)
PROC: B32S1ZZ Computerized Tomography (CT Scan) of Right Pulmonary Artery using Low Osmolar Contrast (ICD-10-PCS; 2021-08-30)
PROC: 04HY32Z Insertion of Monitoring Device into Lower Artery, Percutaneous Approach (ICD-10-PCS; 2021-09-01)
DX: A41.9 Sepsis, unspecified organism (principal); I46.9 Cardiac arrest, cause unspecified; I33.0 Acute and subacute infective endocarditis; J96.00 Acute respiratory failure, unspecified whether with hypoxia or hypercapnia; N17.0 Acute kidney failure with tubular necrosis; I63.9 Cerebral infarction, unspecified; J69.0 Pneumonitis due to inhalation of food and vomit; R65.21 Severe sepsis with septic shock; F15.10 Other stimulant abuse, uncomplicated; G93.1 Anoxic brain damage, not elsewhere classified; Z20.822 Contact with and (suspected) exposure to COVID-19; I44.2 Atrioventricular block, complete; T40.411A Poisoning by fentanyl or fentanyl analogs, accidental (unintentional), initial encounter; E03.9 Hypothyroidism, unspecified; I49.01 Ventricular fibrillation; F11.10 Opioid abuse, uncomplicated; I47.2 Ventricular tachycardia; Y92.89 Other specified places as the place of occurrence of the external cause; Z51.5 Encounter for palliative care; Z88.0 Allergy status to penicillin
CPT/HCPCS: 36415; 36600; 70450; 71045; 71275; 74174; 80048; 80053; 80076; 80202; 80305; 81001; 81025; 82550; 82553; 82803; 82947; 82948; 83605; 83690; 83721; 83735; 84100; 84134; 84145; 84439; 84443; 84478; 84484; 84702; 85007; 85018; 85025; 85610; 85730; 87040; 87070; 87077; 87081; 87088; 87186; 87635; 92950; 93005; 93306; 94002; 94003; 94760; 94799; 96365; 96368; 99285; C9113; C9803; G0378; J0171; J0461; J0610; J0696; J1250; J1265; J1644; J1720; J2270; J2704; J3010; J3370; J3490; J7030; J7042; J7120; Q9967